=== PATIENT | female | born 1925 | race Hispanic/Latino ===

== ENCOUNTER 2017-10-01 12:13 | Emergency (ER) | payer MEDICARE ==
[~2017-10-01 12:13] MED LIST: AMLO1CAP11 PO; ESOM40CA PO
== END 2017-10-01 15:24 | disposition home or self-care (01) ==
LOC: EDH 12:13
DX: S09.90XA Unspecified injury of head, initial encounter (principal); I11.0 Hypertensive heart disease with heart failure; I50.9 Heart failure, unspecified; G89.29 Other chronic pain; M54.9 Dorsalgia, unspecified; X58.XXXA Exposure to other specified factors, initial encounter; Y93.89 Activity, other specified; Y92.89 Other specified places as the place of occurrence of the external cause; Y99.8 Other external cause status
CPT/HCPCS: 70450; 72125